=== PATIENT | female | born 1940 | race Hispanic/Latino ===

== ENCOUNTER 2019-09-09 18:46 | Emergency (ER) | payer MEDICARE ==
[2019-09-09 20:04] LABS: BASOPHILS % (AUTO) 1.2 % (0.0-5.0); EOSINOPHILS % (AUTO) 1.6 % (0.0-8.0); HEMATOCRIT 40.4 % (36-48); LYMPHOCYTES % (AUTO) 27.7 % (21.0-51.0); MEAN CORPUSCULAR HEMOGLOBIN 29.2 pg (27.0-33.0); MEAN CORPUSCULAR HGB CONC 33.8 g/dL (32.0-36.0); MEAN CORPUSCULAR VOLUME 86.4 fL (79-99); MONOCYTES % (AUTO) 8.7 % (3.0-13.0); NEUTROPHILS % (AUTO) 60.8 % (40.0-77.0); PLATELET COUNT (AUTO) 268 K/uL (130-400); RED BLOOD CELL COUNT(AUTO) 4.68 MIL/uL (4.00-5.50); RED CELL DISTRIBUTION WIDTH 15.5 % (11.0-15.5); WHITE BLOOD COUNT (AUTO) 7.6 K/uL (4.8-10.8)
[2019-09-09 20:21] LABS: POTASSIUM 3.4 mmol/L (3.5-5.1)
[2019-09-09 20:26] LABS: ALBUMIN 3.1 g/dL (3.5-5.0); BILIRUBIN,TOTAL 1.4 mg/dL (0.2-1.0); INR 1.06 (0.85-1.15); PARTIAL THROMBOPLASTIN TIME 28.8 SEC (26.3-35.5); PROTHROMBIN TIME 11.1 SEC (9.6-11.6); TOTAL PROTEIN, SERUM 6.6 g/dL (6.0-8.3)
[2019-09-09 20:31] LABS: B-TYPE NATRIURETIC PEPTIDE 602 pg/mL (0-100)
[2019-09-09] MEDS ORDERED: NITROGLYCERIN 1GM/1 INCH PACKET TD ONE (20:42)
[2019-09-09] MEDS ORDERED: ACETAMINOPHEN 325 MG TAB ONE (20:45)
[2019-09-09] MEDS ORDERED: FUROSEMIDE 10 MG/ML 4ML VIAL ONE (21:32)
[2019-09-09 22:10] LABS: APPEARANCE,URINE Clear (CLEAR); BILIRUBIN,URINE Negative (NEGATIVE); COLOR,URINE Yellow (YELLOW); GLUCOSE, URINE (UA) Negative (NEGATIVE); KETONES,URINE Negative (NEGATIVE); LEUKOCYTE ESTERASE ,URINE Negative (NEGATIVE); NITRATE,URINE Negative (NEGATIVE); OCCULT BLOOD,URINE Negative (NEGATIVE); PROTEIN,URINE Negative (NEGATIVE)
[2019-09-09] MEDS ORDERED: POTASSIUM CHLORIDE 20 MEQ ERTAB PO ONE (23:51)
== END 2019-09-10 00:12 | disposition home or self-care (01) ==
LOC: EDH 18:46
DX: I11.0 Hypertensive heart disease with heart failure (principal); I50.43 Acute on chronic combined systolic (congestive) and diastolic (congestive) heart failure; E11.9 Type 2 diabetes mellitus without complications; E78.00 Pure hypercholesterolemia, unspecified; I25.10 Atherosclerotic heart disease of native coronary artery without angina pectoris; I21.9 Acute myocardial infarction, unspecified; M19.90 Unspecified osteoarthritis, unspecified site; Z95.1 Presence of aortocoronary bypass graft; Z87.891 Personal history of nicotine dependence; Z88.0 Allergy status to penicillin
CPT/HCPCS: 36415; 71045; 80053; 81003; 82550; 83880; 84484 ×2; 85025; 85610; 85730; 87804 ×2; 93005 ×2; 96374; 99285; J1940

== ENCOUNTER → 2019-09-25 | Outpatient (CLI) | payer MEDICARE ==
[~2019-09-25] MED LIST: ALLO100T PO; AMLO10TA7 PO; ASPI-1005 PO; ATOR10 PO; ERGO400T7 PO; FURO40TA7 PO; GABA-529 PO; GEMF600T5 PO; ISOS60TA4 PO; LEVO50TA11 PO; LORA-705 PO; LOSA50TA64 PO; MECL12.585 PO; METO-391 PO; MONT10TA24 PO; RANI300C PO; ROSU20TA31 PO; SERT50TA12 PO; TICA90TA PO
== END | disposition home or self-care (01) ==
LOC: OIH 10:46
PROVIDERS: ATTEND Internal Medicine
DX: J44.1 Chronic obstructive pulmonary disease with (acute) exacerbation (principal)
CPT/HCPCS: 71046